=== PATIENT | female | born 1990 ===

== ENCOUNTER 2022-01-30 14:18 | Outpatient (CLI) | payer OTHER ==
[~2022-01-30 14:18] MED LIST: CONCEPT DHA CA1 EACH PO; SYNTHROID112 MCG
== END 2022-01-30 14:45 | disposition home or self-care (01) ==
LOC: PRENATAL 14:18
PROVIDERS: ATTEND Obstetrics & Gynecology Maternal & Fetal Medicine
DX: O36.80X0 Pregnancy with inconclusive fetal viability, not applicable or unspecified (principal); O99.280 Endocrine, nutritional and metabolic diseases complicating pregnancy, unspecified trimester; Z3A.12 12 weeks gestation of pregnancy